=== PATIENT | male | born 1935 | race Caucasian/White ===

== ENCOUNTER 2022-04-03 22:33 | Emergency (ER) | payer MEDICARE ==
[~2022-04-03] VITALS: Ht 182.9 cm; Wt 74.8 kg
[2022-04-03 22:36] VITALS: BP 167/71
--- NOTE | 2022-04-03 22:38 | NUR ---
PT BERTO ALS, TO BED AT THIS TIME
--- NOTE | 2022-04-03 22:42 | NUR ---
BEVERLYD MADE AWARE OF ORAL TEMP.
[2022-04-03] MEDS ORDERED: IBUPROFEN 400 MG TAB PO ONE (22:45)
[2022-04-03] MEDS ORDERED: NACL 0.9% 2,500 ML IV ONE (22:45)
[2022-04-03] MEDS ORDERED: ACETAMINOPHEN EXTRA STRENGTH 500 MG TAB PO ONE (22:45)
[2022-04-03] MEDS ORDERED: PIPERACILLIN/TAZOBACTAM 3.375 GM in DEXTROSE 5% 50 ML IV ONE (22:45)
--- NOTE | 2022-04-03 23:00 | NUR ---
87/M BIBA FROM HOME WITH C/C OF LETHARGY/ SLOW TO RESPOND XYESETRDAY. PER FAMILY THIS HAS BEEN WORSENING. PT WAS DX WITH UTI AND IS ON LAST DOSE ON ABX. PATIENT C/O FEVER. PT PRESENTS WITH 18G TO LEFT AC RUNNING 250CC OF NS PLACED DURING TRANSPORT. PATIENT HAS HEARING AIDS ON. ABLE TO UNDERSTAND CORRECTLY. PATIENT AAOX4. PATIENT PLACED IN GOWN AND MONITOR. BED LOW AND LOCKED. CALL LIGHT IN REACH. ALL NEEDS MET. PMHX: HTN, DM, PROSTATE CA NKA
--- NOTE | 2022-04-03 23:00 | NUR ---
SPOKE TO NEPTALI. SHE WOULD LIKE TO BE NOTIFIED OF ANY CHANGES. CONTACT NUMBER [phone]
[2022-04-03 23:02] LABS: BASOPHILS % (AUTO) 0.5 % (0.0-2.0); EOSINOPHILS % (AUTO) 0.6 % (0.0-4.0); HEMATOCRIT 29.9 % (36-52); HEMOGLOBIN 9.7 g/dL (12.0-18.0); LYMPHOCYTES # (AUTO) 0.4 K/uL (2.0-11.5); LYMPHOCYTES % (AUTO) 6.9 % (20.5-51.1); MEAN CORPUSCULAR HEMOGLOBIN 27 pg (27-31); MEAN CORPUSCULAR HGB CONC 33 g/dL (33-37); MEAN CORPUSCULAR VOLUME 83.5 fL (80-94); MONOCYTES # (AUTO) 0.4 K/uL (0.8-1.0); MONOCYTES % (AUTO) 7.5 % (1.7-9.3); NEUTROPHILS # (AUTO) 4.4 K/uL (1.8-7.7); NEUTROPHILS % (AUTO) 84.5 % (42.2-75.2); PLATELET COUNT (AUTO) 280 K/uL (140-450); RED BLOOD CELL COUNT(AUTO) 3.58 MIL/uL (4.20-6.10); WHITE BLOOD COUNT (AUTO) 5.3 K/uL (4.8-10.8)
--- NOTE | 2022-04-03 23:11 | NUR ---
XRAY AT BEDSIDE
[2022-04-03] MEDS ORDERED: PIPERACILLIN/TAZOBACTAM 3.375 GM VIAL IV ONE (23:14)
--- NOTE | 2022-04-03 23:24 | NUR ---
ERMD AT BEDSIDE
[2022-04-03 23:25] LABS: ALBUMIN 2.8 g/dL (3.4-5.0); ANION GAP 14.1 (8-16); ASPARTATE AMINOTRANSFERASE 107 U/L (15-37); CARBON DIOXIDE 22.8 mmol/L (21-32); CHLORIDE 105 mmol/L (98-107); CREATININE 1.1 mg/dL (0.6-1.3); GLUCOSE 157 mg/dL (74-106); POTASSIUM 3.9 mmol/L (3.5-5.1); SODIUM SERUM 138 mmol/L (136-145); TOTAL BILIRUBIN 0.7 mg/dL (0.0-1.0); UREA NITROGEN, BLOOD 19 mg/dL (7-18)
--- NOTE | 2022-04-04 00:13 | NUR ---
ORAL TEMP TAKEN 98.7
--- NOTE | 2022-04-04 00:15 | NUR ---
PATIENT CHANGED AND REPOSITIONED. ALL NEEDS MET.
--- NOTE | 2022-04-04 00:20 | NUR ---
UA COLLECTED AND HANDED TO LAB
[2022-04-04 00:46] LABS: APPEARANCE,URINE SL CLOUDY (CLEAR); BILIRUBIN,URINE NEGATIVE (NEGATIVE); BLOOD, URINE 1+ (NEGATIVE); COLOR,URINE YELLOW (YELLOW); LEUKOCYTE ESTERASE ,URINE TRACE (NEGATIVE); NITRITE, URINE NEGATIVE (NEGATIVE); PH,URINE 5.5 (5.0-9.0); UGLUCOSE NEGATIVE (NEGATIVE)
[2022-04-04 01:05] LABS: WBC,URINE 0-5 /HPF (0-5); YEAST,URINE None Seen /HPF (None Seen)
--- NOTE | 2022-04-04 04:30 | NUR ---
VERBAL ORDER TO PLACE GOODMAN CATHETER. # 16 FR Goodman catheter with 10 ml utilizing sterile technique. Immediate return of 900 ml DARK YELLOW urine noted. Bedside drainage bag placed below level of bladder. Pt tolerated procedure WELL. PATIENT STATED THAT HE NO LONGER FEELS PRESSURE.
--- NOTE | 2022-04-04 04:30 | NUR ---
PATIENT STATED THAT HE FELT A LOT OF PRESSURE AND PAIN. AWARE.
--- NOTE | 2022-04-04 04:35 | NUR ---
CHANGED AND REPOSITIONED. BED LOW AND LOCKED. REJI SIDE RAILS FOR SAFETY. CALL LIGHT IN REACH. ALL NEEDS MET
[2022-04-04] MEDS ORDERED: VANCOMYCIN 1,000 MG in DEXTROSE 5% 250 ML IV ONE (06:25)
[2022-04-04] MEDS ORDERED: VANCOMYCIN 1,000 MG VIAL ONE (06:27)
--- NOTE | 2022-04-04 07:15 | NUR ---
Pt report given to SAROJ RIVERO. Transfer of care at this time.
--- NOTE | 2022-04-04 07:15 | NUR ---
REPORT RECEIVED FROM STEFANIE DIANE. ASSUMED CARE AT THIS TIME
[2022-04-04 07:28] VITALS: BP 123/60
--- NOTE | 2022-04-04 07:42 | NUR ---
900ML JOVANNA CLOUDY URINE COLLECTED AND EMPTIED FROM CATH BAG
--- NOTE | 2022-04-04 07:42 | NUR ---
Allan freedman in [facility] - 04/04/22 at 0759 by PHSEP 900ML JOVANNA CLEAR URINE COLLECTED AND EMPTIED FROM CATH BAG
--- NOTE | 2022-04-04 08:10 | NUR ---
pt provided w/ breakfast. pt awake, repositioned and eating in bed
--- NOTE | 2022-04-04 09:05 | NUR ---
[facility] CONTACTED AND MADE AWARE OF PT TX , REPORT GIVEN TO IRIS KYLE . ALL QUESTIONS ANSWERED
--- NOTE | 2022-04-04 09:05 | NUR ---
Allan freedman in ED - 04/04/22 at 1936 by PHSEP [facility] CONTACTED AND MADE AWARE OF PT TX , REPORT GIVEN TO MUSA KYLE . ALL QUESTIONS ANSWERED
--- NOTE | 2022-04-04 09:10 | NUR ---
PT TX TO [facility] VIA [facility]
--- NOTE | 2022-04-04 09:10 | NUR ---
Patient to be transferred to [facility]. Is being transferred due to SEPSIS. Receiving facility has accepting physician and available space. ER physician has signed transfer form. Patient or responsible republican has agreed to transfer and signed form. Patient belongings inventoried and will be sent with patient. Copy of nursing notes, lab reports, EKG, Physicians Orders and X-rays to be sent with patient. Report called to IRIS KYLE at receiving facility. [facility] ambulance service has been called for transfer. ETA is 15 MIN .
--- NOTE | 2022-04-04 10:27 | NUR ---
LATE ENTRY. 0.9% NS DISCONTINUED 0700 04/04/22.
--- NOTE | 2022-04-05 10:41 | NUR ---
LATE ENTRY- IV VANCOCIN DISCONTINUED AT 0700.
== END 2022-04-04 09:10 | disposition short-term general hospital (02) ==
LOC: MED 22:33
DX: A41.9 Sepsis, unspecified organism (principal); Z20.822 Contact with and (suspected) exposure to COVID-19; R65.20 Severe sepsis without septic shock; N39.0 Urinary tract infection, site not specified; I10 Essential (primary) hypertension; E11.9 Type 2 diabetes mellitus without complications; Z85.9 Personal history of malignant neoplasm, unspecified; Z79.4 Long term (current) use of insulin; Z79.899 Other long term (current) drug therapy
CPT/HCPCS: 36415; 71045; 74176; 80053; 81001; 82550; 82553; 83605; 83880; 84484; 85025; 87040; 87086; 87426; 93005; 96365; 96367; 99291; 99292; J2543; J3370; J7030; Q0092